=== PATIENT | female | born 1985 | race Caucasian/White ===

== ENCOUNTER 2018-04-09 10:42 | Emergency (ER) | payer MEDICAID ==
[2018-04-09] MEDS ORDERED: OXYCODONE-ACETAMINOPHEN 5-325 MG TABLET PO ONE (11:58)
[2018-04-09] MEDS ORDERED: LIDOCAINE 4%/TETRACAINE 0.5%/EPI 0.18% 5 ML TOPICAL SOLN TOP ONE (11:58)
--- NOTE | 2018-04-09 12:26 | ER Document Report ---
ED General - General Chief Complaint: Abscess Stated Complaint: BOIL Time Seen by Provider: 04/09/18 11:28 Mode of Arrival: Ambulatory Information source: Patient Notes: Patient presents emergency department with complaints of boil on the crack of her buttocks. Patient reports she has had this before twice opened once at a hospital the other time at urgent care. Patient denies fever or diarrhea but reports some nausea. Denies history of MRSA. TRAVEL OUTSIDE OF THE [place] IN LAST 30 DAYS: No - HPI Onset: Other - 4 days Quality of pain: Achy, Other - sore Severity: Severe Pain Level: 5 Associated symptoms: None Exacerbated by: Movement Relieved by: Denies Similar symptoms previously: Yes Recently seen / treated by doctor: No - Related Data Allergies/Adverse Reactions: latex Allergy (Verified 04/09/18 10:44) Past Medical History - General Information source: Patient Last Menstrual Period: denies - Social History Smoking Status: Current Every Day Smoker Cigarette use (# per day): Yes Frequency of alcohol use: None Drug Abuse: None Occupation: [employer] Family History: None Patient has suicidal ideation: No Patient has homicidal ideation: No - Medical History Medical History: Negative Renal/ Medical History: Denies: Hx Peritoneal Dialysis Past Surgical History: Reports: Hx Gynecologic Surgery - d/c 2018 Review of Systems - Review of Systems Notes: Review HPI for review of systems., All other systems negative Physical Exam - Vital signs Vitals: Temp Pulse Resp BP Pulse Ox 97.9 F 101 H 14 118/77 99 04/09/18 10:48 04/09/18 10:48 04/09/18 10:48 04/09/18 10:48 04/09/18 10:48 - Notes Notes: PHYSICAL EXAMINATION: GENERAL: Well-appearing and in no acute distress HEAD: Atraumatic, normocephalic. EYES: extraocular movements intact, sclera anicteric, conjunctiva are normal. ENT: nares patent, Moist mucous membranes. NECK: Normal range of motion, supple without lymphadenopathy LUNGS: RR even unlabored HEART: Regular rate EXTREMITIES: Normal range of motion, no pitting edema. No cyanosis. NEUROLOGICAL: Cranial nerves grossly intact. Normal sensory/motor exams. PSYCH: Normal mood, normal affect. - Skin Skin Temperature: Warm Skin Moisture: Dry Skin irregularity: Abscess Location of irregularity: Other - right proximal buttock Character of irregularity: Erythematous Irregularity with: Swelling, Tenderness Course - Re-evaluation Re-evalutation: 04/09/18 Patient was instructed on medications. She is taking Septra before without problems. She was instructed on how to clean the area. She was also instructed to return if the area becomes red or more painful more swelling. She verbalized understanding to all instructions. - Vital Signs Vital signs: Temp Pulse Resp BP Pulse Ox 97.8 F 73 16 118/70 97 04/09/18 13:29 04/09/18 13:29 04/09/18 13:29 04/09/18 13:29 04/09/18 13:29 Procedures - Incision and Drainage Right Buttock Type: Simple Anesthetic type: 1% Lidocaine, Other - let I&D procedure: Shurclens applied Incision Method: Incision made by scalpel Amount/type of drainage: large amount creamy white thick drainage Notes: 04/09/18 13:14 t incision made, lg amount drainage, patient tolerated well. Adult Front & Back picture: 1 - abscess Discharge - Discharge Clinical Impression: Abscess, incision and drainage Condition: Stable Disposition: HOME, SELF-CARE Instructions: Abscess ([facility]), Oral Narcotic Medication ([facility]), Post Incision and Drainage, Trimethoprim-Sulfa ([facility]) Additional Instructions: *You have been treated for an abscess with incision and drainage *Take medication as prescribed *Monitor the site for signs of increasing infection such as increasing pain, redness, swelling, warmth *Wash the site twice daily as discussed *Follow up with a primary care provider within one week for recheck *Return to ED for signs of increasing infection, worsening condition, changes, needs Prescriptions: Oxycodone HCl/Acetaminophen [Percocet 5-325 mg Tablet] 1 - 2 tab PO ASDIR PRN # 15 tablet PRN Reason: Sulfamethoxazole/Trimethoprim [Bactrim Ds Tablet] 1 each PO BID #20 tablet Forms: Return to Work
[2018-04-09 13:33] VITALS: BP 118/70
== END 2018-04-09 13:33 | disposition home or self-care (01) ==
LOC: ER 10:42
PROC: 0H98XZZ Drainage of Buttock Skin, External Approach (ICD-10-PCS; principal; 2018-04-09)
DX: L02.31 Cutaneous abscess of buttock (principal); F17.210 Nicotine dependence, cigarettes, uncomplicated
CPT/HCPCS: 99283; 87070; 87205; 87075; 87077; 10060; J3490